=== PATIENT | female | born 1990 | race African-American/Black ===

== ENCOUNTER 2018-08-08 17:40 | Emergency (ER) | payer SELFPAY ==
[~2018-08-08] VITALS: Ht 170.2 cm; Wt 145.0 kg
[2018-08-08] MEDS: FentaNYL CITRATE-PF 100 MCG/2 ML VIAL IVP ONE (18:44)
[2018-08-08] MEDS: ONDANSETRON HCL 4 MG/2 ML VIAL IVP ONE (18:50)
[2018-08-08 19:06] LABS: BASOPHILS % (AUTO) 0.4 % (0.0-2.0); EOSINOPHILS % (AUTO) 0.1 % (1.0-6.0); HEMOGLOBIN 13.4 g/dL (12.0-16.0); LYMPHOCYTES % (AUTO) 9.4 % (22.0-44.0); MEAN CORPUSCULAR HEMOGLOBIN 30.4 pg (26.0-34.0); MEAN CORPUSCULAR HGB CONC 33.5 G/dL (31.0-37.0); MEAN CORPUSCULAR VOLUME 91 fL (80-100); MONOCYTES # (AUTO) 0.6 K/uL (0.1-1.0); MONOCYTES % (AUTO) 5.3 % (2.0-9.0); NEUTROPHILS # (AUTO) 9.4 K/uL (1.8-7.7); NEUTROPHILS % (AUTO) 84.8 % (40.0-70.0); PLATELET COUNT (AUTO) 188 K/uL (150-450); RED BLOOD CELL COUNT(AUTO) 4.41 MIL/uL (4.00-5.20); RED CELL DISTRIBUTION WIDTH 12.4 % (11.5-14.5)
[2018-08-08] MEDS: ETOMIDATE 2 MG/ML 10 ML VIAL IVP ONE (19:13)
[2018-08-08 19:19] LABS: ANION GAP 13 mmol/L (8-16); CALCIUM, TOTAL 9.2 mg/dL (8.8-10.5); CARBON DIOXIDE 24 mmol/L (22-29); CHLORIDE 105 mmol/L (98-107); GLOMERULAR FILTR. RATE CALC > 60 mL/min (>60); GLUCOSE,RANDOM 98 mg/dL (70-110); POTASSIUM 3.1 mmol/L (3.5-5.1); SODIUM SERUM 142 mmol/L (136-145); UREA NITROGEN, BLOOD 13 mg/dL (7-18)
[2018-08-08 19:30] LABS: HCG,QUANTITATIVE < 1 mIU/mL (0-6)
[2018-08-08] MEDS: KETOROLAC TROMETHAMINE 30 MG/ML VIAL IVP ONE (19:46)
[2018-08-08] MEDS: OXYGEN THERAPY IH SCH (19:51)
[2018-08-08] MEDS ORDERED: BACITRACIN 0.9 GM PACKET OINTMENT TP ONE (21:44)
[2018-08-08 21:59] VITALS: BP 122/64
[2018-08-08] MEDS: BACITRACIN 0.9 GM PACKET OINTMENT TP ONE (22:00)
[2018-08-08] MEDS: PERTUSS(ACELL),DIPH,TET VAC/PF 0.5 ML VIAL IM ONE (22:05)
== END 2018-08-08 22:12 | disposition home or self-care (01) ==
LOC: EMS 17:42
DX: S43.005A Unspecified dislocation of left shoulder joint, initial encounter (principal); S93.401A Sprain of unspecified ligament of right ankle, initial encounter; S70.01XA Contusion of right hip, initial encounter; S20.212A Contusion of left front wall of thorax, initial encounter; S20.211A Contusion of right front wall of thorax, initial encounter; S90.511A Abrasion, right ankle, initial encounter; V03.90XA Pedestrian on foot injured in collision with car, pick-up truck or van, unspecified whether traffic or nontraffic accident, initial encounter; Y93.01 Activity, walking, marching and hiking; Y92.89 Other specified places as the place of occurrence of the external cause; Y99.8 Other external cause status
CPT/HCPCS: 23650; 36415; 71110; 73020; 73502; 73610; 80048; 84702; 85025; 90471; 90715; 96374; 96375; 99285; J1885; J2405; J3010; J3490